=== PATIENT | female | born 1985 | race Caucasian/White ===

== ENCOUNTER 2024-02-08 21:13 | Emergency (ER) | payer OTHER ==
[~2024-02-08] VITALS: Ht 167.6 cm; Wt 47.6 kg
[2024-02-08] MEDS ORDERED: NS 1,000 ML IV SCH (22:15)
[2024-02-08] MEDS ORDERED: CefTRIAXone Sodium 1,000 MG in NS 100 ML IV ONE (22:20)
[2024-02-08] MEDS ORDERED: Azithromycin 500 MG in NS 250 ML IV ONE ×2 (22:20→22:55)
[2024-02-08 22:30] LABS: Hematocrit 32.9 % (33.0-51.0); Hemoglobin 11.3 g/dL (11.5-16.0); Mean Corpuscular HGB 28.8 pg (26.0-34.0); Mean Corpuscular HGB Conc 34.3 g/dL (31.5-36.5); Mean Corpuscular Volume 84 fL (80-100); Mean Platelet Volume 9.9 fL (9.1-12.4); Platelet Count 145 K/mm3 (150-400); RDW Coefficient Variation 13.5 % (11.7-14.2); RDW Standard Deviation 41.7 fL (35.1-46.3); Red Blood Cell Count 3.93 M/mm3 (3.80-5.20)
[2024-02-08] MEDS ORDERED: Azithromycin 500 MG in NS 250 ML IV SCH (22:45)
[2024-02-08 22:52] LABS: BAND PERCENT MAN 25 % (0-8); BASOPHILS PERCENT MAN 0 % (0-2); EOSINOPHILS PERCENT MAN 0 % (0-6); LYMPHOCYTES ABSOLUTE MAN 0.53 K/mm3 (0.84-5.20); LYMPHOCYTES PERCENT MAN 7 % (21-46); MONOCYTES ABSOLUTE MAN 0.38 K/mm3 (0.16-1.47); MONOCYTES PERCENT MAN 5 % (4-13); NEUTROPHILS ABSOLUTE MAN 6.68 K/mm3 (1.96-9.15); SEG NEUTROPHILS PERCENT MAN 63 % (41-73); TOTAL CELLS COUNTED 100
[2024-02-08 22:55] LABS: Albumin, Blood 3.2 g/dL (3.4-5.0); Albumin/Globulin Ratio 0.7 (0.8-1.8); Bilirubin, Total 0.6 mg/dL (0.1-1.0); Bun/Creatinine Ratio 16.1 (12.0-20.0); Calcium, Blood 8.8 mg/dL (8.5-10.1); Creatinine, Blood 0.62 mg/dL (0.40-1.00); Globulin, Blood 4.6 g/dL (2.2-4.0); Potassium, Blood 2.9 mmol/L (3.5-5.5); Total Protein, Blood 7.8 g/dL (6.4-8.2)
[2024-02-08] MEDS ORDERED: Potassium Chloride 20 MEQ TabCR PO ONE (23:05)
[2024-02-08] MEDS ORDERED: Magnesium Oxide 400 MG Tab PO ONE (23:05)
[2024-02-08 23:16] LABS: Influenza B, PCR NEGATIVE (NEGATIVE); Resp Syncytial Virus, PCR NEGATIVE (NEGATIVE); SARS-Cov-2 (COVID-19) PCR, MMC NEGATIVE (NEGATIVE)
[2024-02-08 23:18] LABS: Influenza A, PCR POSITIVE (NEGATIVE)
[2024-02-08] MEDS ORDERED: AZIT250 PO (23:22)
[2024-02-08] MEDS ORDERED: POTA10T PO (23:23)
[2024-02-08] MEDS ORDERED: ACET500 PO (23:23)
[2024-02-09 00:31] VITALS: BP 112/62
== END 2024-02-09 00:32 | disposition home or self-care (01) ==
LOC: ER 21:13
PROVIDERS: Emergency Medicine; Physician Assistant
DX: J11.00 Influenza due to unidentified influenza virus with unspecified type of pneumonia (principal); E87.6 Hypokalemia; Z88.7 Allergy status to serum and vaccine
CPT/HCPCS: 0241U; 71046; 80053; 85025; 96365; 96367; 99283-25; A9270; J0456; J0696; J7030; J7050

== ENCOUNTER → 2024-02-20 | Outpatient (CLI) | payer OTHER ==
[~2024-02-20] MED LIST: ACET500 PO; AZIT250 PO; POTA10T PO
[2024-02-20 15:41] LABS: Bacterial Vaginosis PCR Negative (NEGATIVE); Candida Group, PCR NOT DETECTED (NOT DETECT); Candida glabrata-krusei, PCR NOT DETECTED (NOT DETECT)
== END ==
LOC: LAB SHORT 10:59 → LAB 10:59
PROVIDERS: Nurse Practitioner Family
DX: N89.8 Other specified noninflammatory disorders of vagina (principal)
CPT/HCPCS: 87086; 87481; 87661; 87801